=== PATIENT | female | born 1970 | race African-American/Black ===

== ENCOUNTER 2018-08-23 13:53 | Emergency (ER) | payer MEDICAID ==
[~2018-08-23] VITALS: Ht 149.9 cm; Wt 57.0 kg
[2018-08-23 14:12] VITALS: BP 130/67
== END 2018-08-23 15:03 | disposition home or self-care (01) ==
LOC: ER 13:53
DX: H65.92 Unspecified nonsuppurative otitis media, left ear (principal); R05 Cough; R11.10 Vomiting, unspecified
CPT/HCPCS: 99283